=== PATIENT | female | born 1970 | race Caucasian/White ===

== ENCOUNTER 2021-04-04 11:27 | Emergency (ER) | payer OTHER ==
[2021-04-04 12:06] LABS: BASOPHIL 0.8 % (0-2); EOSINOPHIL 2.1 % (0-5); HCT 43.5 % (37.0-47.0); HGB 14.8 g/dl (12.5-16.0); LYMPHOCYTE 29.6 % (15-48); MCH 31.1 pg (25.0-31.0); MCV 91.4 fL (78.0-100.0); MONOCYTE 8.1 % (0-12); MPV 10.3 fL (6.0-9.5); NEUTROPHIL 58.5 % (41-80); NRBC 0; PLT 262 K/uL (150-400); RBC 4.76 M/uL (4.20-5.40); RDW 12.9 % (11.5-14.0); WBC 9.8 K/uL (4.0-10.5)
[2021-04-04 12:24] LABS: INR 1.04 (0.9-1.2); PTT 27.2 SECONDS (24.4-34.7)
[2021-04-04 12:24] LABS: ALBUMIN 3.7 g/dL (3.4-5.0); BILIRUBIN - TOTAL 0.5 mg/dL (0.2-1.0); BUN/CREAT RATIO (CALC) 21.1 RATIO; CREATININE 0.9 mg/dL (0.51-0.95); GLOBULIN (CALCULATION) 3.4 g/dL; POTASSIUM 3.2 mmol/L (3.5-5.1); TOTAL PROTEIN 7.1 g/dL (6.4-8.2)
[2021-04-04 12:26] LABS: D-DIMER < 0.27 ug/mLFEU (0.00-0.41)
[2021-04-04 12:32] LABS: CKMB 0.8 ng/mL (0.0-3.6)
== END 2021-04-04 13:28 | disposition home or self-care (01) ==
LOC: FER 11:27
PROVIDERS: Emergency Medicine
DX: R07.89 Other chest pain (principal); E87.6 Hypokalemia; I10 Essential (primary) hypertension; Z90.710 Acquired absence of both cervix and uterus; Z88.2 Allergy status to sulfonamides
CPT/HCPCS: 36415; 71046; 80053; 82553; 84484; 85025; 85379; 85610; 85730

== ENCOUNTER 2022-04-09 09:07 | Emergency (ER) | payer OTHER | END 2022-04-09 10:43 | disposition home or self-care (01) | LOC: FER 09:07 | DX: U07.1 COVID-19 (principal); I10 Essential (primary) hypertension; Z88.2 Allergy status to sulfonamides; Z28.311 Partially vaccinated for COVID-19 | CPT/HCPCS: 71046; 93005; U0002 ==